=== PATIENT | male | born 1995 | race Caucasian/White ===

== ENCOUNTER 2020-03-22 20:25 | Emergency (ER) | payer BC ==
[~2020-03-22] VITALS: Ht 162.6 cm; Wt 99.8 kg
== END 2020-03-22 21:37 | disposition home or self-care (01) ==
LOC: ER 20:25
DX: S81.811A Laceration without foreign body, right lower leg, initial encounter (principal); W26.0XXA Contact with knife, initial encounter
CPT/HCPCS: 12001; 99282-25

== ENCOUNTER → 2023-01-30 | Outpatient (CLI) | payer BC ==
[2023-01-31 23:08] LABS: CHLAMYDIA TRACHOMATIS, NAA Negative (Negative)
== END ==
LOC: LAB 13:30 → LAB SHORT 13:30
PROVIDERS: Psychologist School
DX: N34.1 Nonspecific urethritis (principal)
CPT/HCPCS: 86592; 87491; 87591